=== PATIENT | male | born 1950 | race Caucasian/White ===

== ENCOUNTER → 2017-12-16 | Outpatient (CLI) | payer BC ==
--- NOTE | 2017-12-16 10:14 | DIAGNOSTIC IMAGING REPORT ---
TESTICULAR ULTRASOUND HISTORY: N50.89 Testicular swelling [id number] COMPARISON: None. FINDINGS: Right testis: 4.3 x 3.1 x 2.2 cm. There are no intratesticular masses. Normal color flow. Trace hydrocele. There is a 3 mm epididymal head cyst. Left testis: 4.0 x 2.9 x 1.9 cm. There are no intratesticular masses. Normal color flow. Trace hydrocele. There is a 4 mm epididymal head cyst. Small left-sided varicocele. IMPRESSION: 1. Trace bilateral hydroceles. 2. Normal testes. 3. Small bilateral epididymal head cysts. 4. Small left-sided varicocele. Electronically signed by: Edouard Conteh M.D. 12/16/2017 10:12 AM Dictated Date/Time: 12/16/2017 10:10 AM
== END | disposition home or self-care (01) ==
LOC: C.ULTR 09:26
PROVIDERS: ATTEND Nurse Practitioner Adult Health
DX: N50.89 Other specified disorders of the male genital organs (principal)